=== PATIENT | female | born 1980 | race African-American/Black ===

== ENCOUNTER 2017-06-30 19:12 | Emergency (ER) | payer MEDICAID ==
[~2017-06-30] VITALS: Ht 177.8 cm; Wt 73.0 kg
[2017-06-30] MEDS ORDERED: KETOROLAC 60MG/2ML VIAL IM ONE (21:00)
[2017-06-30 22:21] VITALS: BP 126/71
== END 2017-06-30 22:22 | disposition home or self-care (01) ==
LOC: ER 19:40
DX: M79.671 Pain in right foot (principal); F17.210 Nicotine dependence, cigarettes, uncomplicated
CPT/HCPCS: 73630; 96372; 99284; J1885; Z7610